=== PATIENT | female | born 1950 | race Caucasian/White ===

== ENCOUNTER 2016-04-16 08:38 | Day surgery (SDC) | payer OTHER ==
[2016-04-16] MEDS ORDERED: TYLENOL ONE (08:53)
[2016-04-16] MEDS ORDERED: BENADRYL ONE (08:53)
[2016-04-16] MEDS ORDERED: NS 250 ML ONE (08:53)
[2016-04-16] MEDS ORDERED: NS IV ONE (09:30)
[2016-04-16] MEDS ORDERED: REMICADE IV ONE (09:30)
[2016-04-16 13:21] VITALS: BP 109/60
== END 2016-04-16 12:55 | disposition home or self-care (01) ==
LOC: INF 08:38
PROVIDERS: ATTEND Internal Medicine Gastroenterology
DX: K51.90 Ulcerative colitis, unspecified, without complications (principal); Z79.899 Other long term (current) drug therapy
CPT/HCPCS: 96365; 96366; J1745; J7050